=== PATIENT | female | born 1935 | race Caucasian/White ===

== ENCOUNTER 2020-08-11 08:52 | Outpatient (REF) | payer MEDICARE, SELFPAY | END 2020-08-11 08:53 | disposition home or self-care (01) | LOC: HO.BBR 08:52 | PROVIDERS: Visit Provider Internal Medicine Hematology & Oncology | DX: E83.110 Hereditary hemochromatosis (principal) | CPT/HCPCS: 99195 ==

== ENCOUNTER 2020-09-06 08:45 | Outpatient (REF) | payer MEDICARE, SELFPAY | END 2020-09-06 08:46 | disposition home or self-care (01) | LOC: HO.BBR 08:45 | PROVIDERS: PCP Internal Medicine; Visit Provider Internal Medicine Hematology & Oncology | DX: E83.110 Hereditary hemochromatosis (principal) | CPT/HCPCS: 99195 ==

== ENCOUNTER 2020-12-27 08:41 | Outpatient (REF) | payer MEDICARE, SELFPAY ==
[2020-12-27 10:24] LABS: Ferritin 177 ng/mL (10-250)
== END 2020-12-27 08:42 | disposition home or self-care (01) ==
LOC: HO.BBR 08:41
PROVIDERS: PCP Internal Medicine; Visit Provider Internal Medicine Hematology & Oncology
DX: E83.110 Hereditary hemochromatosis (principal)
CPT/HCPCS: 36415; 82728

== ENCOUNTER 2021-01-20 09:01 | Outpatient (REF) | payer MEDICARE, SELFPAY | END 2021-01-20 09:02 | disposition home or self-care (01) | LOC: HO.BBR 09:01 | PROVIDERS: Visit Provider Internal Medicine Hematology & Oncology | DX: Z13.89 Encounter for screening for other disorder (principal) ==

== ENCOUNTER 2021-02-09 14:20 | Outpatient (REF) | payer MEDICARE, SELFPAY | END 2021-02-09 14:21 | disposition home or self-care (01) | LOC: HO.BBR 14:20 | PROVIDERS: Visit Provider Internal Medicine Hematology & Oncology | DX: Z13.89 Encounter for screening for other disorder (principal) ==

== ENCOUNTER 2021-04-04 11:43 | Outpatient (REF) | payer MEDICARE, SELFPAY ==
[2021-04-04 14:38] LABS: Ferritin 61 ng/mL (10-250)
== END 2021-04-04 11:44 | disposition home or self-care (01) ==
LOC: HO.BBR 11:43
PROVIDERS: Visit Provider Internal Medicine Hematology & Oncology
DX: E83.110 Hereditary hemochromatosis (principal)
CPT/HCPCS: 36415; 82728